=== PATIENT | female | born 1990 | race Caucasian/White ===

== ENCOUNTER 2016-06-15 19:25 | Emergency (ER) | payer BC, OTHER ==
[~2016-06-15] VITALS: Ht 157.5 cm; Wt 56.0 kg
[~2016-06-15 19:25] MED LIST: ALBU8.5H3 INH; IBUP-1724 PO; LITH300T4 PO; LITH600C PO
--- OUTSIDE RECORDS SUMMARY | 2016-06-15 19:28 | XMS REPORT | Referral Summary ---
Author Author [facility], Family [facility] Organization [facility] Address Unknown Phone Unavailable Care Team Providers Care Telescope Operator Name Role Phone Marylu Baez Primary Care Physician [phone] Encounter VC Date(s): 04/24/16 - 04/24/16 [facility], Family [address] [place] [id number] Discharge Diagnosis: Asthma Discharge Diagnosis: Bipolar disorder Discharge Diagnosis: Tobacco user Discharge Disposition: 01-Home or Self Care Attending Physician: Mustapha Baez MD Admitting Physician: Mustapha Baez MD Vital Signs Most recent to 1 oldest [Reference Range]: Blood Pressure 100/60 mmHg [90-140/60-90 mmHg] (04/24/16 1:07 PM) Problem List Condition Effective Dates Status Health Status Informant Asthma(Confirmed) Active Bipolar Active disorder(Confirmed) Closed fracture of Active finger of right hand(Confirmed) Encounter related to Active worker's compensation claim(Confirmed) Tobacco Active patient user(Confirmed) Allergies, Adverse Reactions, Alerts Substance Reaction Severity Status amoxicillin Active erythromycin Active PredniSONE Anhydrous Active Medications albuterol 90 mcg/inh inhalation powder puffs, Inhalation, q4hr, 0 Refill(s) Start Date: 12/21/14 Status: Ordered ibuprofen 0 Refill(s) Start Date: 12/21/14 Status: Ordered ProAir HFA 90 mcg/inh inhalation aerosol 2 puffs, Inhalation, QID, as needed for wheezing, # 8.5 g, 3 Refill(s), Pharmacy : [facility] #[id number] Start Date: 04/24/16 Status: Ordered triamcinolone 0.1% topical cream 1 ayo, Topical, BID, Rash, X 14 days, # 30 g, 0 Refill(s), Pharmacy: [facility] #[id number] Start Date: 04/24/16 Stop Date: 05/08/16 Status: Ordered Results No data available for this section Immunizations No data available for this section Procedures No data available for this section Social History Social History Type Response Smoking Status Current every day smoker Assessment and Plan Extracted from: Title: Ambulatory Patient Education Author: Mustapha Baez MD Date: 12/29 Allergy Asthma, Adult Asthma is a recurring condition in which the airways tighten and narrow. Asthma can make it difficult to breathe. It can cause coughing, wheezing, and shortness of breath. Asthma episodes, also called asthma attacks, range from minor to life-threatening. Asthma cannot be cured, but medicines and lifestyle changes can help control it. CAUSES Asthma is believed to be caused by inherited (genetic) and environmental factors , but its exact cause is unknown. Asthma may be triggered by allergens, lung infections, or irritants in the air. Asthma triggers are different for each person. Common triggers include: Animal dander. Dust mites. Cockroaches. Pollen from trees or grass. Mold. Smoke. Air pollutants such as dust, household marketing intelligence analyst, hair sprays, aerosol sprays, paint fumes, strong chemicals, or strong odors. Cold air, weather changes, and winds (which increase molds and pollens in the air). Strong emotional expressions such as crying or laughing hard. Stress. Certain medicines (such as aspirin) or types of drugs (such as beta- blockers). Sulfites in foods and drinks. Foods and drinks that may contain sulfites include dried fruit, potato chips, and sparkling grape juice. Infections or inflammatory conditions such as the flu, a cold, or an inflammation of the nasal membranes (rhinitis). Gastroesophageal reflux disease (GERD). Exercise or strenuous activity. SYMPTOMS Symptoms may occur immediately after asthma is triggered or many hours later. Symptoms include: Wheezing. Excessive nighttime or dispatch associate coughing. Frequent or severe coughing with a common cold. Chest tightness. Shortness of breath. DIAGNOSIS The diagnosis of asthma is made by a review of your medical history and a physical exam. Tests may also be performed. These may include: Lung function studies. These tests show how much air you breathe in and out. Allergy tests. Imaging tests such as X-rays. TREATMENT Asthma cannot be cured, but it can usually be controlled. Treatment involves identifying and avoiding your asthma triggers. It also involves medicines. There are 2 classes of medicine used for asthma treatment: Controller medicines. These prevent asthma symptoms from occurring. They are usually taken every day. Reliever or rescue medicines. These quickly relieve asthma symptoms. They are used as needed and provide short-term relief. Your health care provider will help you create an asthma action plan. An asthma action plan is a written plan for managing and treating your asthma attacks. It includes a list of your asthma triggers and how they may be avoided. It also includes information on when medicines should be taken and when their dosage should be changed. An action plan may also involve the use of a device called a peak flow meter. A peak flow meter measures how well the lungs are working. It helps you monitor your condition. HOME CARE INSTRUCTIONS Take medicines only as directed by your health care provider. Speak with your health care provider if you have questions about how or when to take the medicines. Use a peak flow meter as directed by your health care provider. Record and keep track of readings. Understand and use the action plan to help minimize or stop an asthma attack without needing to seek medical care. Control your home environment in the following ways to help prevent asthma attacks: Do not smoke. Avoid being exposed to secondhand smoke. Change your heating and air conditioning filter regularly. Limit your use of fireplaces and wood stoves. Get rid of pests (such as roaches and mice) and their droppings. Throw away plants if you see mold on them. Clean your floors and dust regularly. Use unscented cleaning products. Try to have someone else vacuum for you regularly. Stay out of rooms while they are being vacuumed and for a short while afterward. If you vacuum, use a dust mask from a hardware store, a double-layered or microfilter vacuum seed cleaner bag, or a vacuum seed cleaner with a HEPA filter. Replace carpet with wood, tile, or vinyl dave. Carpet can trap dander and dust. Use allergy-proof pillows, mattress covers, and box spring covers. Wash bed sheets and blankets every week in hot water and dry them in a dryer. Use blankets that are made of polyester or cotton. Clean bathrooms and franco with bleach. If possible, have someone repaint the lama in these rooms with mold-resistant paint. Keep out of the rooms that are being cleaned and painted. Wash hands frequently. SEEK MEDICAL CARE IF: You have wheezing, shortness of breath, or a cough even if taking medicine to prevent attacks. The colored mucus you cough up (sputum) is thicker than usual. Your sputum changes from clear or white to yellow, green, he, or bloody. You have any problems that may be related to the medicines you are taking (such as a rash, itching, swelling, or trouble breathing). You are using a reliever medicine more than 23 times per week. Your peak flow is still at 5079% of your personal best after following your action plan for 1 hour. You have a fever. SEEK IMMEDIATE MEDICAL CARE IF: You seem to be getting worse and are unresponsive to treatment during an asthma attack. You are short of breath even at rest. You get short of breath when doing very little physical activity. You have difficulty eating, drinking, or talking due to asthma symptoms. You develop chest pain. You develop a fast heartbeat. You have a bluish color to your lips or fingernails. You are light-headed, dizzy, or faint. Your peak flow is less than 50% of your personal best. MAKE SURE YOU: Understand these instructions. Will watch your condition. Will get help right away if you are not doing well or get worse. This information is not intended to replace advice given to you by your health care provider. Make sure you discuss any questions you have with your health care provider. Document Released: 03/01/2006 Document Revised: 03/22/2015 Document Reviewed: [employer] Patient Education 2016 [employer] No follow up information was provided. Extracted from: Title: Office Visit Note Author: Mustapha Baez MD Date: 04/24/16 Assessment/Plan Asthma This issue was reviewed, appears stable, and current therapy continued except as mentioned. Appropriate lab was reviewed from the most recent appropriate entry and lab was ordered if needed in the cpoe/nursing orders, and follow up recommended generally in 90 days and no later then six months. Inhaler refilled and voucher given. Bipolar disorder We discussed several options for treatment for this condition. The patient declined any changes or other treatments at this time. No SIs. To PV or consider seroquel when interested. Tobacco user Smoking Cessation was discussed. The patient is welcome to f/u for therapy or medication for smoking cessation at any time that they are willing to quit. Excision of moles when interested. All flesh colored and unchanged per her. Impression: Probable subacute but incompletely healed fracture of the distal tuft of the distal phalanx of the right index finger [1] A work/school note was offered and deferred by the patient. All lab declined.
--- OUTSIDE RECORDS SUMMARY | 2016-06-15 19:29 | XMS REPORT | Referral Summary ---
Author Author [facility] Organization [facility] Address Unknown Phone Unavailable Care Team Providers Care Burrito Maker Name Role Phone No PCP, States Primary Care Physician [phone] Encounter VC Date(s): 01/04/15 - 01/04/15 [facility] [address] [place] [id number] Discharge Disposition: 01-Home or Self Care Attending Physician: Mustapha Baez MD Admitting Physician: Mustapha Baez MD Vital Signs Most recent to 1 oldest [Reference Range]: Blood Pressure 100/60 mmHg [90-140/60-90 mmHg] (01/04/15 9:22 AM) Problem List Condition Effective Dates Status Health Status Informant Asthma(Confirmed) Active Bipolar Active disorder(Confirmed) Tobacco Active patient user(Confirmed) Allergies, Adverse Reactions, Alerts Substance Reaction Severity Status amoxicillin Active erythromycin Active PredniSONE Anhydrous Active Medications albuterol 90 mcg/inh inhalation powder puffs, Inhalation, q4hr, 0 Refill(s) Start Date: 12/21/14 Status: Ordered ibuprofen 0 Refill(s) Start Date: 12/21/14 Status: Ordered lithium Oral, 0 Refill(s) Start Date: 12/21/14 Status: Ordered Results No data available for this section Immunizations No data available for this section Procedures No data available for this section Social History Social History Type Response Smoking Status Current every day smoker Assessment and Plan Extracted from: Title: Ambulatory Patient Education Author: Mustapha Baez MD Date: Custom Polar Pack Post Operative Instructions Following your operative procedure, a polar pack has been applied to your extremity. A polar pack is a cooling device used to help decrease pain and swelling. There are various types of polar packs, but they all incorporate ice and water as the coolants. The polar pack should be used for the length of time prescribed by your surgeon. The polar pack consists of two separate devices: the pad that is placed over your extremity and the container that holds the ice and water. The container has hoses that quick connect into the pad. This should be disconnected prior to getting up and walking anywhere. The container that holds the ice and water can be refilled as the ice and water decreases. The inside of the polar pack has a marking as to how full to fill it with water. The polar pack and your dressing should not be stopped until your post- operative instructions indicate that you can do so. The polar pack pad should NOT be placed directly on your skin as it could cause serious injury! No follow up information was provided. Extracted from: Title: Office Visit Note Author: Mustapha Baez MD Date: 01/04/15 Assessment/Plan Closed fracture of distal phalanx of second finger of right hand with delayed healing This issue is stable and appropriate refills, lab, and f/u have been discussed. RTW note with continued limitations discussed.
--- OUTSIDE RECORDS SUMMARY | 2016-06-15 19:29 | XMS REPORT ---
Author Author Maria Del Carmen Tucker [facility] [employer] Address Unknown Phone Unavailable Care Team Providers Care Formulation Chemist Name Role Phone Maria Del Carmen Tucker CP Unavailable Allergies No Known Allergies Problems Problem Type Condition Code Onset Dates Condition Status Problem Bipolar disorder, unspecified 296.80 Active Problem Mood disorder in conditions classified elsewhere 293.83 Active Medications No Known Medications Results No Known Results Summary Purpose [employer] Submission
--- OUTSIDE RECORDS SUMMARY | 2016-06-15 19:29 | XMS REPORT | Referral Summary ---
Author Author [facility] Organization [facility] Address Unknown Phone Unavailable Care Team Providers Care Marketing Program Manager Name Role Phone No PCP, Pt States Primary Care Physician [phone] Encounter Date(s): 12/21/14 - 12/21/14 [facility] [address] [place] [address] Discharge Disposition: 01-Home or Self Care Attending Physician: Mustapha Baez MD Admitting Physician: Mustapha Baez MD Vital Signs Most recent to 1 oldest [Reference Range]: Blood Pressure 100/50 mmHg [90-140/60-90 mmHg] (12/21/14 8:38 AM) Problem List Condition Effective Dates Status [...] smoker Assessment and Plan Extracted from: Title: Office Visit Note Author: Mustapha Baez MD Date: 12/21/14 Assessment/Plan Finger fracture Confirm fracture from [facility]. Likely needs recheck xray in two weeks. Continue splint and limited work restrictions for now. She is right handed and unable to use the trigger finger for her normal work. Continue OTC meds for pain. Chronic health issues need addressed at . Addendum Her ER note finally arrived and the xray did confirm the fracture as reported. No joint by involvement was evident. Mustapha Baez MD on December 21, 2014 09:33:37 CDT
--- OUTSIDE RECORDS SUMMARY | 2016-06-15 19:29 | XMS REPORT ---
Author Author Maria Del Carmen Tucker Organization [employer] Address Unknown Phone Unavailable Care Team Providers Care Project Engineer Chemicals Name Role Phone Maria Del Carmen Tucker CP Unavailable Allergies, Adverse Reactions, Alerts Substance Reaction Event Type PredniSONE anaphylaxis Drug Allergy Erythromycin anaphylaxis Drug Allergy Amoxicillin rash Drug Allergy Problems Problem Type Condition Code Onset Dates Condition Status Problem Bipolar disorder, unspecified 296.80 Active Assessment Mood disorder in conditions classified elsewhere 293.83 Active Problem Mood disorder in conditions classified elsewhere 293.83 Active Assessment Posttraumatic stress disorder 309.81 Active Assessment Bipolar disorder, unspecified 296.80 Active Medications Medication Code System Code Instructions Start Date End Date Status Dosage [place] Carbonate [facility] [address]-82 300 MG Orally BID 2 caps in am , 1 in pm Albuterol Sulfate HFA [facility] [address]-29 108 (90 Base) MCG/ACT Inhalation every 4 hrs 2 puffs as needed Procedures Procedure Coding System Code Date OFFICE VISIT, EST-LOW COMPLEXITY (15 MIN.) CPT-4 99964 July 02, 2014 Vital Signs Date/Time: July 02, 2014 Height 62.5 in Weight 136.5 lbs Temperature 98.2 F Blood Pressure Diastolic 50 mm Hg Blood Pressure Systolic 100 mm Hg Cardiac Monitoring Heart Rate 84 /min BMI 24.57 Index Respiratory Rate 16 /min Results No Known Results Summary Purpose eClinicalWorks Submission
--- OUTSIDE RECORDS SUMMARY | 2016-06-15 19:29 | XMS REPORT | Referral Summary ---
Author Author [facility] Organization [facility] Address Unknown Phone Unavailable Care Team Providers Care Clinic Coordinator Name Role Phone No PCP, States Primary Care Physician [phone] Encounter VC Date(s): 02/04/15 - 02/04/15 [facility] [address] [place] [id number] Discharge Disposition: 01-Home or Self Care Attending Physician: Mustapha Baez MD Admitting Physician: Mustapha Baez MD Vital Signs Most recent to 1 oldest [Reference Range]: Blood Pressure 100/60 mmHg [90-140/60-90 mmHg] (02/04/15 1:09 PM) Problem List Condition Effective Dates Status Health Status Informant Asthma(Confirmed) Active Bipolar Active disorder(Confirmed) Closed fracture of Active finger of right hand(Confirmed) Tobacco Active patient user(Confirmed) Allergies, Adverse Reactions, [...] Patient Education Author: Mustapha Baez MD Date: Family Medicine Finger Fracture Fractures of fingers are breaks in the bones of the fingers. There are many types of fractures. There are different ways of treating these fractures. Your health care provider will discuss the best way to treat your fracture. CAUSES Traumatic injury is the main cause of broken fingers. These include: Injuries while playing sports. Workplace injuries. Falls. RISK FACTORS Activities that can increase your risk of finger fractures include: Sports. Workplace activities that involve machinery. A condition called osteoporosis, which can make your bones less dense and cause them to fracture more easily. SIGNS AND SYMPTOMS The main symptoms of a broken finger are pain and swelling within 15 minutes after the injury. Other symptoms include: Bruising of your finger. Stiffness of your finger. Numbness of your finger. Exposed bones (compound fracture) if the fracture is severe. DIAGNOSIS The best way to diagnose a broken bone is with X-ray imaging. Additionally, your health care provider will use this X-ray image to evaluate the position of the broken finger bones. TREATMENT Finger fractures can be treated with: NonreductionThis means the bones are in place. The finger is splinted without changing the positions of the bone pieces. The splint is usually left on for about a week to 10 days. This will depend on your fracture and what your health care provider thinks. Closed reductionThe bones are put back into position without using surgery. The finger is then splinted. Open reduction and internal fixationThe fracture site is opened. Then the bone pieces are fixed into place with pins or some type of hardware. This is seldom required. It depends on the severity of the fracture. HOME CARE INSTRUCTIONS Follow your health care provider's instructions regarding activities, exercises, and physical therapy. Only take [id number] or prescription medicines for pain, discomfort, or fever as directed by your health care provider. SEEK MEDICAL CARE IF: You have pain or swelling that limits the motion or use of your fingers. SEEK IMMEDIATE MEDICAL CARE IF: Your finger becomes numb. MAKE SURE YOU: Understand these instructions. Will watch your condition. Will get help right away if you are not doing well or get worse. Document Released: 06/13/2001 Document Revised: 12/20/2013 Document Reviewed: [employer] Patient Information 2015 [facility], [facility]. This information is not intended to replace advice given to you by your health care provider. Make sure you discuss any questions you have with your health care provider. No follow up information was provided. Extracted from: Title: Office Visit Note Author: Mustapha Baez MD Date: 02/04/15 Assessment/Plan Closed fracture of finger of right hand Improving. Xray pending. Consult offered and declined. Continue splint for 30 more days and recheck here. A work/school note was offered and deferred by the patient. Tobacco user Smoking Cessation was discussed. The patient is welcome to f/u for therapy or medication for smoking cessation at any time that they are willing to quit. Orders: XR Hand Complete Right
--- OUTSIDE RECORDS SUMMARY | 2016-06-15 19:29 | XMS REPORT | Referral Summary ---
Author Author [facility] Organization [facility] Address Unknown Phone Unavailable Care Team Providers Care Mixing And Molding Machine Operator Name Role Phone No PCP, States Primary Care Physician [phone] Encounter Date(s): 01/04/15 - 01/04/15 [facility] [address] [place] [id number] Discharge Disposition: 01-Home or Self [...]
--- OUTSIDE RECORDS SUMMARY | 2016-06-15 19:29 | XMS REPORT | Continuity of Care Document ---
Demographics Preferred Language Unknown Marital Status Unknown Faith Affiliation Unknown Race Unknown Ethnic Group Unknown Author Author [facility] Organization [facility] Address Unknown Phone Unavailable Support Name Relationship Address Phone YANA WOODY MD Caregiver [address] [place] [address] [place] [address] Problems Medical Problems Problem Onset Date Status Memory disturbance Unknown Active Medications Medication Dose Route Sig Days/Qty Instructions Order Date Discontinued Date Status Fowler Carbonate 1 PO AM 05/22/14 Active Fowler Carbonate 1 PO BEDTIME 05/22/14 Active Albuterol Sulfate 2 Puff INH Q4H PRN CONGESTION 05/22/14 Active Social History Social History Problem Response Recorded Date/Time Hx Substance Use Y meth 05/22/2014 6:42pm Hx Alcohol Use No 05/22/2014 6:42pm Tobacco Usage smoke 05/22/2014 6:29pm Query Response Start Date Stop Date Smoking Status Current every day smoker Hospital Discharge Instructions No hospital discharge instructions. Plan of Care No plan of care. Functional Status Query Response Date Recorded Physical Hygiene Self May 22, 2014 6:42pm Disabilities Visual May 22, 2014 6:42pm Devices Used None May 22, 2014 6:42pm Dressing Self May 22, 2014 6:42pm Ambulation Self May 22, 2014 6:42pm Diet Self May 22, 2014 6:42pm Mental Status Alert Oriented May 22, 2014 7:19pm Disabilities Visual May 22, 2014 6:42pm Devices Used None May 22, 2014 6:42pm Physical Hygiene Self May 22, 2014 6:42pm Dressing Self May 22, 2014 6:42pm Ambulation Self May 22, 2014 6:42pm Diet Self May 22, 2014 6:42pm Allergies, Adverse Reactions, Alerts Allergen Type Severity Reaction Status Last Updated Prednisone Allergy Severe BODY SWELLING Active 05/22/14 Erythromycin base Allergy Severe HIVES Active 05/22/14 Amoxicillin Allergy Unknown RASH TO NECK Active 05/22/14 Immunizations Name Given Type Hx Influenza Vaccination No Historical Hx Influenza Vaccination No Historical Vital Signs Acute Vital Signs Vital Response Date/Time Temperature (Fahrenheit) 98.3 deg F (96.8 - 99.1) Temperature (Calculated Celsius) 36.68925 degrees C (36.0 - 37.3) Pulse Rate (adult) 79 bpm (60 - 100) Respiratory Rate 18 breaths/min (10 - 20) O2 Sat by Pulse Oximetry 96 % (90 - 100) Blood Pressure 112/63 mm Hg Height 5 ft 2 in Weight 142 lb Body Mass Index 26.0 kg/m^2 Results Test Source Date Result Interp. Ref. Range Comments Thyroid Stimulating Hormone (TSH) May 22, 2014 6:26pm 1.56 MIU/L N 0.47-4.68 Magnesium Level May 22, 2014 6:26pm 2.2 MG/DL N 1.6-2.3 Alanine Aminotransferase (ALT/SGPT) May 22, 2014 6:26pm 25 U/L N 9-52 Aspartate Amino Transf (AST/SGOT) May 22, 2014 6:26pm 13 U/L L 14-36 Albumin/Globulin Ratio May 22, 2014 6:26pm 1.5 RATIO N 1.1-2.2 Globulin May 22, 2014 6:26pm 2.5 G/DL N 2.4-3.6 Albumin May 22, 2014 6:26pm 3.7 G/DL N 3.5-5.0 Total Protein May 22, 2014 6:26pm 6.2 G/DL L 6.3-8.2 Alkaline Phosphatase May 22, 2014 6:26pm 49 U/L N 38-126 Total Bilirubin May 22, 2014 6:26pm 0.20 MG/DL N 0.20-1.30 Calcium Level May 22, 2014 6:26pm 8.8 MG/DL N 8.4-10.2 Calculated Osmolality May 22, 2014 6:26pm 276 MOSM/KG N 261-280 Glucose Level May 22, 2014 6:26pm 108 MG/DL N 65-110 Glomerular Filtration Rate Calc May 22, 2014 6:26pm 106 - BUN/Creatinine Ratio May 22, 2014 6:26pm 19 RATIO N 6-26 Creatinine May 22, 2014 6:26pm 0.7 MG/DL N 0.7-1.2 Blood Urea Nitrogen May 22, 2014 6:26pm 13.0 MG/DL N 7-17 Anion Gap May 22, 2014 6:26pm 9 MEQ/L N 5-15 Carbon Dioxide Level May 22, 2014 6:26pm 25 MEQ/L N 22-30 Chloride Level May 22, 2014 6:26pm 109 MEQ/L H 98-107 Potassium Level May 22, 2014 6:26pm 3.5 MEQ/L L 3.6-5 Sodium Level May 22, 2014 6:26pm 143 MEQ/L N 134-144 Turbidity May 22, 2014 6:26pm < 20 0-20 Chemistry Specimen Hemolysis May 22, 2014 6:26pm < 15 0-25 0-25: No Hemolysis.26-70: Slight Hemolysis - can falsely elevate K and Urine Protein. 71-285: Moderate Hemolysis - can falsely elevate K, Troponin I, CA 19-9, PTH, CSF GLucose, and Urine Protein, and can falsely decrease Phenytoin. 286-999: Gross Hemolysis - can falsely elevate K, Troponin I, CA 19-9, PTH, CSF Glucose, and Urine Protine, and can falsely decrease Phenytoin. Recommend specimen recollection. Icterus Index May 22, 2014 6:26pm < 2 0-7 Fowler Level May 22, 2014 6:26pm 0.5 MMOL/L L 0.6-1.2 Immature Granulocyte # (Auto) May 22, 2014 6:26pm 0.02 T/MM3 N 0.00- 0.03 Basophils # (Auto) May 22, 2014 6:26pm 0.1 T/MM3 N 0-0.2 Eosinophils # (Auto) May 22, 2014 6:26pm 0.4 T/MM3 N 0-0.5 Monocytes # (Auto) May 22, 2014 6:26pm 1.1 T/MM3 H 0-0.8 Lymphocytes # (Auto) May 22, 2014 6:26pm 2.7 T/MM3 N 1-4.8 Neutrophils # (Auto) May 22, 2014 6:26pm 6.3 T/MM3 N 1.8-7.7 Immature Granulocyte % (Auto) May 22, 2014 6:26pm 0.2 % N 0.0-0.5 Basophils (%) (Auto) May 22, 2014 6:26pm 0.8 % N 0-2 Eosinophils (%) (Auto) May 22, 2014 6:26pm 4.1 % H 0-4 Monocytes (%) (Auto) May 22, 2014 6:26pm 10.0 % H 0-9.0 Lymphocytes (%) (Auto) May 22, 2014 6:26pm 25.6 % N 23-45 Neutrophils (%) (Auto) May 22, 2014 6:26pm 59.3 % N 33-66 Mean Platelet Volume May 22, 2014 6:26pm 10.2 UM3 N 9.4-12.4 Platelet Count May 22, 2014 6:26pm 221 T/MM3 N 130-400 RDW Standard Deviation May 22, 2014 6:26pm 41.8 FL N 36.9-50.2 Mean Corpuscular Hemoglobin Concent May 22, 2014 6:26pm 33.2 GM/DL N 31-37 Mean Corpuscular Hemoglobin May 22, 2014 6:26pm 31.7 UUG N 26-34 Mean Corpuscular Volume May 22, 2014 6:26pm 95.3 UM3 N 80-100 Hematocrit May 22, 2014 6:26pm 38.2 % N 36-46 Hemoglobin May 22, 2014 6:26pm 12.7 GM/DL N 12-16 Red Blood Count May 22, 2014 6:26pm 4.01 M/MM3 N 4.00-5.20 White Blood Count May 22, 2014 6:26pm 10.5 T/MM3 N 4.5-11.0 Procedures No known history of procedures. Encounters Encounter Location Date/Time Departed Emergency Room [facility] 05/22/14 4:51pm Recent Diagnosis
--- OUTSIDE RECORDS SUMMARY | 2016-06-15 19:29 | XMS REPORT | Continuity Of Care Document ---
Author Author [facility] Organization [facility] [address] [facility] [place] [address] Phone Care Team Providers Care Broadcast Correspondent Name Role Phone Jatinder TRUONG DO AT Results Lab Results Visit/Account #[id number] (February 24, 2014 4:31pm - February 24, 2014 8: 36pm) Test Result Date/Time 61349-5: COMPLETE BLOOD COUNT WITH DIFF WHITE BLOOD COUNT(4.0-11.0 10E3/UL) 13.3 10E3/UL February 24, 2014 4:51pm RED BLOOD COUNT(4.00-5.20 10E6/UL) 4.63 10E6/UL February 24, 2014 4:51pm HEMOGLOBIN(12.0-16.0 G/DL) 14.3 G/DL February 24, 2014 4:51pm HEMATOCRIT(36.0-46.0 %) 44.2 % February 24, 2014 4:51pm 59855-4: MEAN CORPUSCULAR VOLUME(82.0-100.0 FL) 95.5 FL February 24, 2014 4:51pm 05935-6: MEAN CORPUSCULAR HEMOGLOBIN(26.0-34.0 PG) 30.9 PG February 24, 2014 4:51pm MEAN CORPUSCULAR HGB CONC(31.5-36.5 G/DL) 32.4 G/DL February 24, 2014 4:51pm RED CELL DISTRIBUTION WIDTH(11.5-14.5 %) 11.9 % February 24, 2014 4:51pm 777-3: PLATELET COUNT(150-450 10E3/UL) 246 10E3/UL February 24, 2014 4:51pm MEAN PLATELET VOLUME(8.2-12.4 FL) 10.1 FL February 24, 2014 4:51pm 770-8: NEUTROPHILS % (AUTO)(40-70 %) 70 % February 24, 2014 4:51pm LYMPHOCYTES % (AUTO)(15-45 %) 18 % February 24, 2014 4:51pm 5905-5: MONOCYTES % (AUTO)(2-10 %) 8 % February 24, 2014 4:51pm 713-8: EOSINOPHILS % (AUTO)(0-6 %) 3 % February 24, 2014 4:51pm 706-2: BASOPHILS % (AUTO)(0-1 %) 1 % February 24, 2014 4:51pm 33714-7: IMMATURE GRANS % (AUTO)(0-0 %) 1 % February 24, 2014 4:51pm NUCLEATED RBCS (AUTO)(0-0 %) 0 % February 24, 2014 4:51pm 751-8: NEUTROPHILS # (AUTO)(2.5-7.5 10E3/UL) 9.4 10E3/UL February 24, 2014 4:51pm 87095-3: LYMPHOCYTES # (AUTO)(1.0-4.0 10E3/UL) 2.4 10E3/UL February 24, 2014 4:51pm 742-7: MONOCYTES # (AUTO)(0.2-0.8 10E3/UL) 1.1 10E3/UL February 24, 2014 4:51pm 711-2: EOSINOPHILS # (AUTO)(0.0-0.4 10E3/UL) 0.3 10E3/UL February 24, 2014 4:51pm 704-7: BASOPHILS # (AUTO)(0.0-0.2 10E3/UL) 0.1 10E3/UL February 24, 2014 4:51pm IMMATURE GRANS # (AUTO)(0.0-0.0 10E3/UL) 0.1 10E3/UL February 24, 2014 4:51pm DIFF TYPE AUTOMATED February 24, 2014 4:51pm UA WITH SCREEN FOR CULTURE 5778-6: COLOR,URINE YELLOW February 24, 2014 4:53pm 14136-2: CLARITY,URINE CLEAR February 24, 2014 4:53pm GLUCOSE, URINE(NEGATIVE MG/DL) NEGATIVE MG/DL February 24, 2014 4:53pm URINE BILIRUBIN(NEGATIVE) NEGATIVE February 24, 2014 4:53pm 42929-9: KETONES,URINE(NEGATIVE MG/DL) NEGATIVE MG/DL February 24, 2014 4:53pm 2965-2: URINE SPECIFIC GRAVITY(1.001-1.035) 1.015 February 24, 2014 4:53pm 60746-6: URINE BLOOD(NEGATIVE) NEGATIVE February 24, 2014 4:53pm 2756-5: URINE PH(5.0-9.0) 7.0 February 24, 2014 4:53pm URINE PROTEIN(Less than 20 MG/DL) NEGATIVE MG/DL February 24, 2014 4:53pm URINE UROBILINOGEN(0.2-1.0 MG/DL) 0.2 MG/DL February 24, 2014 4:53pm URINE NITRITE(NEGATIVE) NEGATIVE February 24, 2014 4:53pm 5799-2: LEUKOCYTE ESTERASE ,URINE(NEGATIVE) NEGATIVE February 24, 2014 4:53pm 630-4: URINE CULTURE NOT INDICATED February 24, 2014 4:53pm URINE MICROSCOPIC REQUIRED NO February 24, 2014 4:53pm 94690-7: COMPLETE METABOLIC PROFILE 04199-6: GLUCOSE(70-110 MG/DL) 105 MG/DL February 24, 2014 5:09pm BLOOD UREA NITROGEN(6-20 MG/DL) 17 MG/DL February 24, 2014 5:09pm 74617-6: CREATININE(0.50-1.20 MG/DL) 0.71 MG/DL February 24, 2014 5:09pm 27394-3: EST GLOMERULAR FILTRATION RATE(Greater than or equal to 60) Greater than or equal to 60 Result Comments: If the patient is of -N[place] descent/extraction multiply the eGFR value by 1.212 to obtain the actual eGFR. >=60 mg/dL Normal 30-59 mg/dL Moderate Kidney Disease 15-29 mg/dL Severe Kidney Disease <15 mg/dL Kidney Failure February 24, 2014 5:09pm BUN CREATININE RATIO(10.0-20.0 RATIO) 24.0 RATIO February 24, 2014 5:09pm 76510-5: SODIUM(135-145 MMOL/L) 140 MMOL/L February 24, 2014 5:09pm 18412-7: POTASSIUM(3.6-5.0 MMOL/L) 4.2 MMOL/L February 24, 2014 5:09pm 92195-3: CHLORIDE(101-111 MMOL/L) 104 MMOL/L February 24, 2014 5:09pm 2028-9: CO2(21-31 MMOL/L) 30.0 MMOL/L February 24, 2014 5:09pm 68764-3: ANION GAP(8-18) 10 February 24, 2014 5:09pm OSMO CALCULATED(270.0-290.0) 281.3 February 24, 2014 5:09pm CALCIUM(8.5-10.5 MG/DL) 9.8 MG/DL February 24, 2014 5:09pm BILIRUBIN,TOTAL(0.1-1.2 MG/DL) 0.3 MG/DL February 24, 2014 5:09pm ALKALINE PHOSPHATASE(42-121 IU/L) 56 IU/L February 24, 2014 5:09pm ASPARTATE AMINO TRANSFERASE(10-42 IU/L) 15 IU/L February 24, 2014 5:09pm ALANINE AMINOTRANSFERASE(10-60 IU/L) 13 IU/L February 24, 2014 5:09pm 83299-3: TOTAL PROTEIN(6.4-8.2 G/DL) 7.4 G/DL February 24, 2014 5:09pm ALBUMIN(3.5-5.5 G/DL) 4.6 G/DL February 24, 2014 5:09pm 2336-6: GLOBULIN(2.4-3.6) 2.8 February 24, 2014 5:09pm 1759-0: ALBUMIN/GLOBULIN RATIO(0.9-1.8 RATIO) 1.6 RATIO February 24, 2014 5:09pm 3040-3: LIPASE 3040-3: LIPASE(22-51 U/L) 16 U/L February 24, 2014 5:09pm SERUM HCG, QUALITATIVE 2110-5: SERUM HCG, QUALITATIVE(NEGATIVE) NEGATIVE February 24, 2014 5:05pm Allergies and Adverse Reactions Allergies and Adverse Reactions Patient Unit Number: [id number] Agent Type Reaction Severity Status Date PREDNISONE Drug Allergy Unknown Unknown Active Unknown Date ERYTHROMYCIN BASE Drug Allergy Unknown Unknown Active Unknown Date AMOXICILLIN Drug Allergy Unknown Unknown Active Unknown Date Problem List Problem List Visit/Account #[id number] (February 24, 2014 4:31pm - February 24, 2014 8: 36pm) Acute Problems: Code/Condition Comments Documented Start Date Documented Resolved Date Code (s) Right upper quadrant abdominal pain ICD10: R10.11 Right upper quadrant pain ICD9: 789.01 Right upper quadrant pain SNOMED: 163439243 Right upper quadrant pain Right upper quadrant abdominal pain ICD10: R10.11 Right upper quadrant pain ICD9: 789.01 Right upper quadrant pain SNOMED: 291397783 Right upper quadrant pain Plan of Care Plan Of Care Visit/Account #[id number] (February 24, 2014 4:31pm - February 24, 2014 8: 36pm) Instructions/Comments: DI for Abdominal Pain-Adult DI for General Gallbladder Conditions Take medication as needed for pain. Avoid any greasy or fatty foods. Eat a bland diet only. Return if new symptoms, worsening symptoms or additional concerns. Followup with surgeon referred to, call on Wednesday morning to schedule appointment for Wednesday. Vital Signs Vital Signs Visit/Account #[id number] (February 24, 2014 4:31pm - February 24, 2014 8: 36pm) Label First Result Last Result 8310-5: Body Temperature 98.0 degF February 24, 2014 4:26pm 8310-5: Fahrenheit Body Temperature 98.3 [degF] February 24, 2014 8:36pm 8480-6: BP Systolic 106/ mmHg February 24, 2014 4:26pm 64/ mm[Hg] February 24, 2014 8:36pm 8867-4: Heart Rate 102 /min February 24, 2014 4:26pm 75 /min February 24, 2014 8:36pm 9279-1: Respiratory Rate 18 /min February 24, 2014 4:26pm 16 /min February 24, 2014 8:36pm Unmapped Query Mnemonic (RESP.SAT) Saturation 100 % February 24, 2014 4:26pm 100 % February 24, 2014 4:26pm Functional Status Functional Status No Functional Status Data Medications Inpatient/Ordered Medications Visit/Account #[id number] (February 24, 2014 4:31pm - February 24, 2014 8: 36pm) Medication Route Sig/Schedule Precondition/Indication Comments/Instructions Codes TORADOL INJ(KETOROLAC TROMETHAMINE) 30 MG/ML INJECTION Total Dose: 30 MG INTRAVEN NOW: NOW Rx Order Comments: Order placed as verified: Allergies/Duplicates/Interactions differ from court recorder Dose Warnings differ from court recorder Label Comments: DO NOT EXCEED 5 DAYS OF THERAPY Special Dose Instructions: Hold until negative TORADOL INJ (KETOROLAC TROMETHAMINE) RxNorm: C905372 TORADOL INJ (KETOROLAC TROMETHAMINE) NDC: 70198841374 ZOFRAN INJ(ONDansetron HCL) 4 MG/2 ML INJECTION Total Dose: 4 MG Route .STK-MED ZOFRAN INJ (ONDansetron HCL) RxNorm: S730263 ZOFRAN INJ (ONDansetron HCL) NDC: 07162742950 Discharge Medications Visit/Account #[id number] (February 24, 2014 4:31pm - February 24, 2014 8: 36pm) Medication Route Sig/Schedule Precondition/Indication Comments/Instructions Codes Toradol(KETOROLAC TROMETHAMINE) 10 MG TAB ORAL Q6: EVERY 6 HOURS Toradol (KETOROLAC TROMETHAMINE) RxNorm: D015800 Toradol (KETOROLAC TROMETHAMINE) NDC: 66431367526 History Of Encounters Encounters Visit/Account #[id number] (February 24, 2014 4:31pm - February 24, 2014 8: 36pm) Account Status Physican Of Record Reason For Visit Visit Diagnosis Start Date/Time Stop Date/Time ER CHANTELLE TRUONG, DO ABDOMINAL PAIN 789.00: ABDOMINAL PAIN, UNSPECIFIED SITE ICD9 Feb 24, 2014 4:31pm Feb 24, 2014 8:36pm History of Procedures Procedure List No Procedures Discharge Instructions Discharge Instructions Visit/Account #[id number] (February 24, 2014 4:31pm - February 24, 2014 8: 36pm) No Discharge Instructions Reports. Social History Social History Visit/Account #[id number] (February 24, 2014 4:31pm - February 24, 2014 8: 36pm) Smoking Status Current every day smoker February 24, 2014 4:42pm Immunizations Immunizations Patient Unit Number: [id number] Immunizations No Immunizations Administered
--- OUTSIDE RECORDS SUMMARY | 2016-06-15 19:29 | XMS REPORT | Referral Summary ---
Author Author [facility] Organization [facility] Address Unknown Phone Unavailable Care Team Providers Care Product Picker Name Role Phone No PCP, States Primary Care Physician [phone] Encounter Date(s): 03/06/15 - 03/06/15 [facility] [address] [place] [address] Discharge Disposition: 01-Home or Self Care Attending Physician: Mustapha Baez MD Admitting Physician: Mustapha Baez MD Vital Signs Most recent to 1 oldest [Reference Range]: Blood Pressure 110/60 mmHg [90-140/60-90 mmHg] (03/06/15 9:57 AM) Problem List Condition Effective Dates Status [...] Author: Mustapha Baez MD Date: Family Medicine Arthralgia Your caregiver has diagnosed you as suffering from an arthralgia. Arthralgia means there is pain in a joint. This can come from many reasons including: Bruising the joint which causes soreness (inflammation) in the joint. Wear and tear on the joints which occur as we grow older (osteoarthritis). Overusing the joint. Various forms of arthritis. Infections of the joint. Regardless of the cause of pain in your joint, most of these different pains respond to anti-inflammatory drugs and rest. The exception to this is when a joint is infected, and these cases are treated with antibiotics, if it is a bacterial infection. HOME CARE INSTRUCTIONS Rest the injured area for as long as directed by your caregiver. Then slowly start using the joint as directed by your caregiver and as the pain allows. Crutches as directed may be useful if the ankles, knees or hips are involved. If the knee was splinted or casted, continue use and care as directed. If an stretchy or elastic wrapping bandage has been applied today, it should be removed and re-applied every 3 to 4 hours. It should not be applied tightly, but firmly enough to keep swelling down. Watch toes and feet for swelling, bluish discoloration, coldness, numbness or excessive pain. If any of these problems (symptoms) occur, remove the anat bandage and re-apply more loosely. If these symptoms persist, contact your caregiver or return to this location. For the first 24 hours, keep the injured extremity elevated on pillows while lying down. Apply ice for 15-20 minutes to the sore joint every couple hours while awake for the first half day. Then 03-04 times per day for the first 48 hours. Put the ice in a plastic bag and place a towel between the bag of ice and your skin. Wear any splinting, casting, elastic bandage applications, or slings as instructed. Only take [id number] or prescription medicines for pain, discomfort, or fever as directed by your caregiver. Do not use aspirin immediately after the injury unless instructed by your physician. Aspirin can cause increased bleeding and bruising of the tissues. If you were given crutches, continue to use them as instructed and do not resume weight bearing on the sore joint until instructed. Persistent pain and inability to use the sore joint as directed for more than 2 to 3 days are warning signs indicating that you should see a caregiver for a follow-up visit as soon as possible. Initially, a hairline fracture (break in bone) may not be evident on X-rays. Persistent pain and swelling indicate that further evaluation, non-weight bearing or use of the joint (use of crutches or slings as instructed), or further X-rays are indicated. X-rays may sometimes not show a small fracture until a week or 10 days later. Make a follow-up appointment with your own caregiver or one to whom we have referred you. A radiologist (specialist in reading X-rays) may read your X-rays. Make sure you know how you are to obtain your X-ray results. Do not assume everything is normal if you do not hear from us. SEEK MEDICAL CARE IF: Bruising, swelling, or pain increases. SEEK IMMEDIATE MEDICAL CARE IF: Your fingers or toes are numb or blue. The pain is not responding to medications and continues to stay the same or get worse. The pain in your joint becomes severe. You develop a fever over 102 F (38.9 C). It becomes impossible to move or use the joint. MAKE SURE YOU: Understand these instructions. Will watch your condition. Will get help right away if you are not doing well or get worse. Document Released: 03/01/2006 Document Revised: 05/23/2012 Document Reviewed: [facility] [place] Patient Information 2015 [place]. This information is not intended to replace advice given to you by your health care provider. Make sure you discuss any questions you have with your health care provider. No follow up information was provided. Extracted from: Title: Office Visit Note Author: Mustapha Baez MD Date: 03/06/15 Assessment/Plan Encounter related to worker's compensation claim Needs to see the Hand specialist for ongoing incomplete resolution. Finger pain Continue splint. See Hand surgery.
--- OUTSIDE RECORDS SUMMARY | 2016-06-15 19:29 | XMS REPORT | Referral Summary ---
Author Author [facility] Organization [facility] Address Unknown Phone Unavailable Care Team Providers Care Azure Architect Name Role Phone No PCP, Pt States Primary Care Physician [phone] Encounter VC Date(s): 12/21/14 - 12/21/14 [facility] [address] [place] [address] Discharge Disposition: [...] 12/21/14 Assessment/Plan Finger fracture Confirm fracture [place] [facility]. Likely needs recheck xray in two [...]
--- OUTSIDE RECORDS SUMMARY | 2016-06-15 19:29 | XMS REPORT ---
Author Author [facility] Del [facility] Organization [employer] Address Unknown Phone Unavailable Care Team Providers Care Clinic Lpn Name Role Phone Maria Del Carmen Tucker CP Unavailable Allergies No Known Allergies Problems Problem Type Condition Code Onset Dates Condition Status Problem Bipolar disorder, unspecified 296.80 Active Assessment Mood disorder in conditions classified elsewhere 293.83 Active Problem Mood disorder in conditions classified elsewhere 293.83 Active Medications Medication Code System Code Instructions Start Date End Date Status Dosage Comerio Carbonate [facility] [address]-15 300 MG Orally BID 2 caps in am , 1 in pm Albuterol Sulfate HFA [facility] [address]-62 108 (90 Base) MCG/ACT Inhalation every 4 hrs 2 puffs as needed Procedures Procedure Coding System Code Date LITHIUM CPT-4 24799 July 31, 2014 TSH WITH REFLEX T4 CPT-4 72505 July 31, 2014 Results No Known Results Summary Purpose [employer] Submission
--- OUTSIDE RECORDS SUMMARY | 2016-06-15 19:29 | XMS REPORT ---
Author Author Maria Del Carmen Tucker [facility] [employer] Address Unknown Phone Unavailable Care Team Providers Care Sprayer Machine Name Role Phone Maria Del Carmen Tucker CP Unavailable Allergies No Known Allergies Problems Problem Type Condition Code Onset Dates Condition Status Problem Bipolar disorder, unspecified 296.80 Active Problem Mood disorder in conditions classified elsewhere 293.83 Active Medications No Known Medications Results No Known Results Summary Purpose [employer] Submission
[2016-06-15 19:46] VITALS: Ht 157.5 cm; Wt 56.0 kg
[2016-06-15] MEDS ORDERED: DIPH25CA84 PO (19:55)
[2016-06-15] MEDS ORDERED: HYDR25CA PO (20:08)
--- NOTE | 2016-06-15 20:08 | ERPDOC ---
Departure Disposition Decision Date: Jun 15, 2016 Disposition Decision Time: 20:06 (CANDACE MURRAY APRN) Disposition: 01 DISCHARGED HOME, SELF-CARE Impression Impression (CANDACE MURRAY APRN) Impression: Primary Impression: Bed bug bite Encounter type: initial encounter Qualified Codes: W57.XXXA - Bitten or stung by nonvenomous insect and other nonvenomous arthropods, initial encounter Severity: Moderate (CANDACE MURRAY APRN) Condition: Stable Seen By: Mid-level only (CANDACE MURRAY APRN) Patient Instructions: Bed Bugs (ED) Problems/Meds/Labs Reviewed?: Yes Medications reviewed and manag: Yes (CANDACE MURRAY APRN) Additional Instructions: Use the Atarax as prescribed for itching. This should go away in the next week. If you should notice more bites or any other family members with bites you may want to get an web production manager to come and check your house for bed bugs. Follow up care ordered?: Yes Mental Status: Alert (CANDACE MURRAY APRN) Scripts Hydroxyzine Pamoate (Vistaril) 25 Mg Capsule 1 CAP PO QID, #20 CAP 0 Refills Prov: CANDACE MURRAY APRN 06/15/16 HPI - Skin General General Chief Complaint: Skin Rash/Abscess Stated Complaint: RASH Time Seen by Provider: 19:57 Source: patient Exam Limitations: no limitations (CANDACE MURRAY APRN) Time Seen by Provider: 19:57 (NOE GOMEZ DO) HPI - Skin General Initial Comments She has noticed that she has several small pink circular itchy bumps that have popped up on her arms/legs/truck over the last few days. She did stay at her mom 's house over the weekend overnight and noticed them after that. They are very itchy and she has been taking Benadryl without relief. Denies any other symptoms. Occurred At: home Onset: Gradual Duration: other (2 days ago) Severity: moderate Location: torso, extremities Possible Cause: insect bite Associated Symptoms: rash, DENIES: blisters, change in skin texture, edema, fever, flushing, headache, hives, jaundice, malaise, nasal congestion, numbness , pallor, paresthesia, petechiae, sore throat, swelling/mass/lumps, tingling Hx of Similar Symptoms: No (NOLD,CANDACE N STOCK CLERK) Allergies: Coded Allergies: erythromycin base (Verified Allergy, Severe, HIVES, 06/15/16) prednisone (Verified Allergy, Severe, BODY SWELLING, 06/15/16) amoxicillin (Verified Allergy, Unknown, RASH TO NECK, 06/15/16) Past History Past Medical History Musculoskeletal: neck pain Psychological: anxiety, bipolar, depression (NOLD,CANDACE N STOCK CLERK) Surgical History General: EGD Reproductive/: (NOLD,CANDACE N STOCK CLERK) Family History Family History: Negative (NOLD,ACNDACE N STOCK CLERK) Vaccines Hx Influenza Vaccination: No (NOLD,CANDACE N STOCK CLERK) Social History Smoking Status: Never smoker Substance Use Type: does not use Alcohol Intake: none (NOLD,CANDACE N STOCK CLERK) Review of Systems Constitutional Constitutional: DENIES: chills, dizziness, fatigue, fever, weakness (NOLD, CANDACE N STOCK CLERK) Musculoskeletal General: DENIES: joint pain, joint swelling, pain, tenderness (NOLD,CANDACE N STOCK CLERK) Integumentary Skin: itching, rash, DENIES: infections, lesion, sores (NOLD,CANDACE N STOCK CLERK) Neurological General: DENIES: headache, numbness, tingling, weakness (NOLD,CANDACE N STOCK CLERK) Physical Exam General General Nourishment: well nourished, well developed, appears stated age, no acute distress, adult General Body Habitus: well groomed (NOLD,CANDACE N STOCK CLERK) Vitals and Pain First Documented Vital Signs Date Time Temp Pulse Resp B/P Pulse Ox O2 Delivery O2 Flow Rate FiO2 06/15/16 19:46 98.5 95 16 120/66 99 Room Air (JULY,NOE M DO) Vitals and Pain Weight: Kilograms: Height (feet): 5 Height (inches): 2 Triage Pain Scale: (NOCLINT,CANDACE N STOCK CLERK) RN VS reviewed by Provider: Yes (NOCLINT,CANDACE N STOCK CLERK) Normal Exams: Lymphatic: No lymphadenopathy, or lymphedema noted Musculoskeletal: No tenderness, or deformity noted, good range of motion, all extremities Neurologic: Patient is alert, and oriented Psychiatric: Patient exhibits, appropriate attention, emotion and affect (TREVOR,CANDACE Jorge APRN) Integumentary (brief) Integumentary Brief: FOUND: rash (She has several small discrete pink, blanchable, circular bites on the bilateral arms, legs, and on her stomach. These do appear consistent with bed bug bites. No scabbing or lesions noted. ) ( CANDACE MURRAY APRN) Differential Diagnoses Considering: Abscess, Bite, Cellulitis, Chickenpox, Contact Dermatitis, Hives/ Urticaria, Poison Lisa Dermatitis (CANDACE MURRAY APRN) Progress Results/Orders Orders Procedure Category Date Status Time Hydroxyzine (Atarax) PHA 06/15/16 Complete 20:15 (JULY,[facility]) Orders Procedure Category Date Status Time Hydroxyzine (Atarax) PHA 06/15/16 Complete 20:15 (CANDACE MURRAY APRN) Medications Current ED Medications Hydroxyzine HCl (Atarax) 10 mg O ONCE PO Last administered on 06/15/16 20:32; Start 06/15/16 at 20:15; Stop 06/15/16 at 20:16; Status DC (JULY,[facility]) Medications Current ED Medications Hydroxyzine HCl (Atarax) 10 mg O ONCE PO Last administered on 06/15/16 20:32; Start 06/15/16 at 20:15; Stop 06/15/16 at 20:16; Status DC (CANDACE MURRAY APRN) Progress Progress Will have her monitor for increasing bites or bites on family members. If any bugs identified at home will have her contact an web production manager. Use the Atarax for the itching. Follow up with PCP if needed. (CANDACE MURRAY APRN) CANDACE MURRAY APRN Jun 15, 2016 20:08 JULY,[facility] Jun 15, 2016 23:21
--- OUTSIDE RECORDS SUMMARY | 2016-06-15 20:08 | XMS REPORT | Continuity of Care Document ---
Demographics Preferred Language Unknown Marital Status Unknown Sikh Affiliation Unknown Race Unknown Ethnic Group Unknown Author Author [facility] Organization [facility] Address Unknown Phone Unavailable Support Name Relationship Address Phone YANA WOODY MD Caregiver [address] [place] [address] [place] [address] Problems Medical Problems Problem Onset Date Status Memory disturbance Unknown Active Medications Medication Dose Route Sig Days/Qty Instructions Order Date Discontinued Date Status [place] Carbonate 1 PO AM 05/22/14 Active [place] Carbonate 1 PO BEDTIME 05/22/14 Active Albuterol [...] F (96.8 - 99.1) Temperature (Calculated Celsius) 36.66279 degrees C (36.0 - 37.3) Pulse Rate [...] May 22, 2014 6:26pm < 2 0-7 [place] Level May 22, 2014 6:26pm 0.5 MMOL/L [...] Encounters Encounter Location Date/Time Departed Emergency Room [facility] 05/22/14 4:51pm Recent Diagnosis
[2016-06-15 20:37] VITALS: BP 120/66; PULSE 95; RESP 16; TEMP 98.5; O2SAT 99
== END 2016-06-15 20:37 | disposition home or self-care (01) ==
LOC: ED 19:25
DX: S40.862A Insect bite (nonvenomous) of left upper arm, initial encounter (principal); S40.861A Insect bite (nonvenomous) of right upper arm, initial encounter; S80.862A Insect bite (nonvenomous), left lower leg, initial encounter; S80.861A Insect bite (nonvenomous), right lower leg, initial encounter; S30.861A Insect bite (nonvenomous) of abdominal wall, initial encounter; W57.XXXA Bitten or stung by nonvenomous insect and other nonvenomous arthropods, initial encounter; Y93.9 Activity, unspecified; Y92.009 Unspecified place in unspecified non-institutional (private) residence as the place of occurrence of the external cause; Y99.8 Other external cause status